=== PATIENT | male | born 1955 | race Caucasian/White ===

== ENCOUNTER 2016-10-28 21:28 | Observation (INO) | payer MEDICAID ==
[~2016-10-28] VITALS: Ht 177.8 cm; Wt 93.8 kg
[2016-10-28] MEDS ORDERED: ASPIRIN 81 MG CHEW TAB ONE (21:45)
[2016-10-28] MEDS ORDERED: DILTIAZEM 50 MG/10 ML VIAL IV ONE (22:11)
[2016-10-28] MEDS ORDERED: METOPROLOL TART 25 MG TAB ONE (23:37)
[2016-10-28] MEDS ORDERED: ENOXAPARIN 100 MG/ML SYR SUBQ ONE (23:38)
[2016-10-28] MEDS ORDERED: ENOXAPARIN 80 MG/0.8 ML SYR SUBQ ONE (23:41)
[2016-10-29] VITALS (7 sets, daily range): BP systolic 113–140; RESP 16–20; TEMP 97.3–97.6; Ht 177.8 cm; Wt 93.8 kg
[2016-10-29] MEDS ORDERED: LORAZEPAM 0.5 MG TAB PO PRN (00:20)
[2016-10-29] MEDS ORDERED: NITROGLYCERIN SL 0.4 MG TAB SL PRN (00:20)
[2016-10-29] MEDS ORDERED: MORPHINE 2 MG/ML SYR IV PRN (00:20)
[2016-10-29] MEDS ORDERED: ONDANSETRON 4 MG VIAL IV PRN (00:20)
[2016-10-29] MEDS ORDERED: DOCUSATE SOD 100 MG CAP PO PRN (00:20)
[2016-10-29] MEDS ORDERED: TRAMADOL 50 MG TAB PO PRN (00:20)
[2016-10-29] MEDS ORDERED: NITROGLYCERIN 50 MG/250 ML IV PRN (00:20)
[2016-10-29] MEDS ORDERED: SALINE FLUSH 10 ML FLUSH PRN (00:20)
[2016-10-29] MEDS ORDERED: ACETAMINOPHEN 325 MG TAB PO PRN (00:20)
[2016-10-29] MEDS ORDERED: SODIUM CHLORIDE 0.9% FLUSH BAG 500 ML IV PRN (00:20)
[2016-10-29] MEDS ORDERED: TEMAZEPAM 15 MG CAP PO PRN (00:20)
[2016-10-29] MEDS ORDERED: ASPIRIN EC 81 MG TAB PO SCH (08:00)
[2016-10-29] MEDS ORDERED: SALINE FLUSH 10 ML FLUSH SCH (08:00)
[2016-10-29] MEDS ORDERED: METOPROLOL TART 25 MG TAB PO SCH (09:00)
[2016-10-29] MEDS ORDERED: METOPROLOL XL 25 MG TAB PO SCH (10:50)
[2016-10-29] MEDS ORDERED: LISINOPRIL 10 MG TAB PO PRN (10:50)
[2016-10-29] MEDS ORDERED: CLOPIDOGREL 75 MG TAB PO SCH (10:50)
[2016-10-29] MEDS ORDERED: ASPIRIN 81 MG CHEW TAB PO SCH (10:50)
[2016-10-29] MEDS ORDERED: ENOXAPARIN 80 MG/0.8 ML SYR SUBQ SCH (12:00)
[2016-10-29] MEDS ORDERED: Atorvastatin 20 MG TAB PO SCH (21:00)
[2016-10-30] MEDS ORDERED: ASPIRIN 81 MG CHEW TAB PO SCH (09:00)
== END 2016-10-29 10:38 | disposition home or self-care (01) ==
LOC: ENRESERVTM → ENRESERVDT → ER 21:28 → ENPENDDIS 23:33 → EMR 23:33 → PCU2 10-29 00:28
PROVIDERS: ADMIT Internal Medicine Cardiovascular Disease; ATTEND Internal Medicine Cardiovascular Disease
DX: I48.0 Paroxysmal atrial fibrillation (principal); E78.5 Hyperlipidemia, unspecified; I10 Essential (primary) hypertension; I25.10 Atherosclerotic heart disease of native coronary artery without angina pectoris; Z95.5 Presence of coronary angioplasty implant and graft; Z79.82 Long term (current) use of aspirin; Z79.02 Long term (current) use of antithrombotics/antiplatelets
CPT/HCPCS: 36415; 71010; 80053; 80061; 82550; 82553; 83735; 83880; 84484; 85025; 85610; 85730; 93005; 94799; 96372; 96374